=== PATIENT | male | born 1940 | race Caucasian/White ===

== ENCOUNTER → 2016-06-06 | Day surgery (SDC) | payer MEDICARE ==
[2016-05-31 13:12] VITALS: BMI 28.3
--- NOTE | 2016-06-05 10:47 | SC.ANESEVA ---
Anesthesia Eval & Plan ([facility]) - Medications/Allergies Allergies: Allergies egg Allergy (Verified 11/06/15 17:23) RASH milk Allergy (Verified 11/06/15 17:23) RASH morphine Allergy (Verified 05/31/16 12:51) Confusion Home Medications: Home Medication List Acetaminophen [Pain Relief] 1 tab PO Q6 PRN 05/31/16 [History] Atorvastatin Calcium [Lipitor] 40 mg PO DAILY 05/31/16 [History] Clopidogrel Bisulfate [Plavix] 75 mg PO DAILY 05/31/16 [History] Docusate Sodium [Dulcolax Stool Softener] 100 mg PO DAILY 05/31/16 [History] Ergocalciferol (Vitamin D2) [Vitamin D2 (ergocalciferol)] 50,000 units PO WEEKLY 05/31/16 [History] Fenofibrate,Micronized [Fenofibrate] 134 mg PO DAILY 05/31/16 [History] Glipizide [Glucotrol] 5 mg PO DAILY 05/31/16 [History] Meclizine HCl [Antivert] 25 mg PO TID PRN 05/31/16 [History] PEG-Electrolytes (Miralax) [Miralax] 17 gm PO DAILY 05/31/16 [History] Pantoprazole Sodium [Protonix] 40 mg PO DAILY 05/31/16 [History] Vitamin K16-Khffe Acid 1 tab PO DAILY 05/31/16 [History] Current Medication List: Reviewed - Focused Physical Exam NPO since: Since after Midnight Mallampati: Class II Thyromental Distance: Greater than 3 Neck: Full Range of Motion Dental: Normal - no significant findings Cardiovascular/Chest: Normal (RRR no mumurs or rubs.) Respiratory: Lungs clear. 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 Acute CVA (cerebral vascular accident) Acute Flushing Acute Hyperlipidemia associated with type 2 diabetes mellitus Acute Nausea Acute Nausea and vomiting Acute Syncope Acute Chronic renal disease, stage 3, moderately decreased glomerular filtration rate (GFR) between 30-59 mL/min/1.73 square meter Chronic Diabetes mellitus with stage 2 chronic kidney disease Chronic Allergies Allergy/AdvReac Type Severity Reaction Status Date / Time egg Allergy RASH Verified 11/06/15 17:23 milk Allergy RASH Verified 11/06/15 17:23 morphine Allergy Confusion Verified 05/31/16 12:51 Home Medications Medication Instructions Recorded Last Taken Type Acetaminophen [Pain Relief] 1 tab PO Q6 PRN 05/31/16 Unknown History Atorvastatin Calcium [Lipitor] 40 mg PO DAILY 05/31/16 Unknown History Clopidogrel Bisulfate [Plavix] 75 mg PO DAILY 05/31/16 Unknown History Docusate Sodium [Dulcolax Stool 100 mg PO DAILY 05/31/16 Unknown History Softener] Ergocalciferol (Vitamin D2) 50,000 units PO WEEKLY 05/31/16 Unknown History [Vitamin D2 (ergocalciferol)] Fenofibrate,Micronized 134 mg PO DAILY 05/31/16 Unknown History [Fenofibrate] Glipizide [Glucotrol] 5 mg PO DAILY 05/31/16 Unknown History Meclizine HCl [Antivert] 25 mg PO TID PRN 05/31/16 Unknown History PEG-Electrolytes (Miralax) 17 gm PO DAILY 05/31/16 Unknown History [Miralax] Pantoprazole Sodium [Protonix] 40 mg PO DAILY 05/31/16 Unknown History Vitamin W02-Iunjp Acid 1 tab PO DAILY 05/31/16 Unknown History Height and Weight Patient's height 5 ft 11 in Patient's weight 92.2 kg Weight (Calculated Kilograms) 92.200 BMI 28.3 - Anesthetic Plan Anesthesia Type: MAC ASA Class: 3 - Focused Review of Systems Cardiac History: Yes: Hx Hypertension, Hx Heart Attack ((cardiac stent)), Hx Cardiac Catheterization, Hx Coronary Stent (stent 2007), Hx Cardiac Disorders, Hx Abnormal Cholesterol/Hyperlipidemia HEENT: Yes: Cataracts, Hx Vision Problem (glasses), Other HEENT Problems Gastrointestinal: Yes: Hx Gastroesophageal Reflux Disease, Hx Gastrointestinal Disorders, Hx Diverticulosis, Hx Colonoscopy (2015) Genitourinary: Yes: Hx Renal Failure Neurological/Musculoskeletal: Yes: HX Cerebrovascular Accident (LEFT SIDED DEFICITS), Hx Numbness, Tingling, Weakness in Arms & Legs (Left hand, left leg) , Hx Neurological Disorders Endocrine: Yes: Hx Non-Insulin Dependent Diabetes Blood/Autoimmune: Yes: Hx Blood Transfusions Smoking Status: Never smoker Past Social History: Denies: Substance Use Disorder Surgical History: Yes: T&A, Other (KIDNEY STONE REMOVAL, SHOULDER,partial colectomy, colostomy & takedown)
[~2016-06-06] MED LIST: ACETAZOLAMIDE 250 MG TAB PO ONE; BSS 500 ml-Vancomycin 10 mg-Phenylephrine 1 mg Irrigation IR ONE; CHONDROITIN SULFATE 0.5 ML/PFS INTRAOC ONE; DEXAMETHASONE 4 MG/ML VIAL IV PRN; DIAZEPAM 5 MG TAB PO PRN; FENTANYL 100 MCG/2 ML VIAL ONE; Hyaluronate Sodium (Provisc) 5.5 mg/0.55 ml syringe INTRAOC ONE; LABETALOL 20 MG/4 ML SYRINGE IV PRN; MIDAZOLAM 2 MG/2 ML VIAL ONE; ONDANSETRON HCL 4 MG/2 ML VIAL IV PRN; PHENYLEPHRINE 2.5% OPHTH SOLN 2 ML BOT OP EYE ONE; SCOPOLAMINE TRANSDERMAL PATCH TOP ONE; TETRACAINE 0.5% 2 ML OPHTH SOLN OS ONE; TETRACAINE 0.5% 4 ML OPHTH SOLN OP EYE ONE; TETRACAINE 0.5% 4 ML OPHTH SOLN OP EYE PRN; TROPICAMIDE 1% OPHTH SOLN 2 ML BOTTLE OP EYE ONE; Vancomycin 10 MG, Phenylephrine 1,000 MCG in Balanced Salt Solution 500 ML IO ONE; hydrALAZINE 20 MG/ML VIAL IV PRN
--- NOTE | 2016-06-06 07:54 | HIMOPRPT ---
DATE OF PROCEDURE: 06/06/16 PREOPERATIVE DIAGNOSIS: Cataract left eye. POSTOPERATIVE DIAGNOSIS: Cataract left eye. PROCEDURE: Cataract extraction by phacoemulsification of the left eye SURGEON: Margy Vidal MD. ANESTHESIA: IV Sedation/Topical. COMPLICATIONS: None. PRE-OPERATIVE EVALUATION: The patient has been examined and deemed medically stable for cataract extraction with no apparent need for inpatient observation; outpatient setting is appropriate. Patient appears to be oriented to time, place and person. PROCEDURE IN DETAIL: The correct eye confirmed by patient, doctor, staff and paperwork. The operative eye was then marked by the doctor in the preoperative area. Eye drops were instilled into the operative eye to dilate the pupil. The patient was transported to the operating room and was placed in the supine position. A time out was performed before the beginning of the procedure. The operative eye was prepped and draped in the usual sterile fashion for ophthalmic surgery, taking care to isolate the lashes from the surgical field. Topical anesthetic drops were instilled into the operative eye. A lid speculum was placed. Betadine 5% was instilled in the operative eye for antiseptic. Microscope was brought into place for use throughout the case. The eye was inspected. A paracentesis incision was created with a side port knife. The temporal limbal corneal incision was performed with a tawanda blade. Viscoelastic was injected into the anterior chamber. Capsule forceps were used to create a capsulorhexis. Hydrodissection was performed with BSS. The nucleus was removed by phacoemulsification. Phaco time is noted below. The remaining cortical material was removed by I&A. The capsular bag was noted to be intact and distended with viscoelastic. The Intraocular lens was placed into the intact bag and centered without difficulty. The remaining viscoelastic was removed by I&A. Betadine 5% drops were placed to inspect wound and for antisepsis. Inspection revealed watertight wounds. The lid speculum was removed. Postoperative medications were instilled into the eye and a shield secured over the operative eye. IOL Type [id number] IOL Power 24.5 CDE 5.19 Discharge Summary: There were no complications and the patient was taken to the postoperative area in good condition. Postoperative instructions and outpatient follow up time were given. left left
[2016-06-06 07:56] VITALS: TEMP 96.4
[2016-06-06 08:03] VITALS: BP 143/87; PULSE 77
--- NOTE | 2016-06-06 08:30 | SC.ANESPOS ---
Post-Anesthesia Note LOC: Fully Awake Post-Anesthesia Assessment: Awake, Returned to Baseline, Hemodynamically Stable , Pain Control Adequate Phase I & II Recovery Complete: Yes Apparent Anesthesia Complication: No : N - Vital Signs Blood Pressure: 143/87 Pulse: 77 Resp Rate: 18 O2 Sat: 95 Temp: 96.4 F
== END ==
LOC: CPSC 05:47
PROVIDERS: ATTEND Ophthalmology
PROC: 08RK3JZ Replacement of Left Lens with Synthetic Substitute, Percutaneous Approach (ICD-10-PCS; principal; 2016-06-06 07:30)
DX: H25.812 Combined forms of age-related cataract, left eye (principal); I10 Essential (primary) hypertension; I25.10 Atherosclerotic heart disease of native coronary artery without angina pectoris; I25.2 Old myocardial infarction; E11.9 Type 2 diabetes mellitus without complications; E78.5 Hyperlipidemia, unspecified; K21.9 Gastro-esophageal reflux disease without esophagitis; I69.954 Hemiplegia and hemiparesis following unspecified cerebrovascular disease affecting left non-dominant side; Z95.5 Presence of coronary angioplasty implant and graft; Z85.46 Personal history of malignant neoplasm of prostate; Z79.84 Long term (current) use of oral hypoglycemic drugs; Z79.899 Other long term (current) drug therapy
CPT/HCPCS: 66984; 82962; A9270; J2250; J3010; V2632; J3490